=== PATIENT | female | born 1995 | race American Indian/Alaskan Native ===

== ENCOUNTER 2018-02-05 07:27 | Emergency (ER) | payer OTHER ==
[~2018-02-05] VITALS: Ht 160 cm; Wt 85.7 kg
[2018-02-05] MEDS ORDERED: XULANE PATCH1 EACH TD (07:44)
[2018-02-05 08:05] LABS: Source, Urine Voided
[2018-02-05 08:12] LABS: Blood, Urine 5+ (Neg); Glucose Qualitative, Urine Neg (Neg); Ketones, Urine Neg (Neg); Leukocyte Esterase, Urine 3+ (Neg); Nitrite, Urine Pos (Neg); Protein, Urine 3+ (Neg); Urobilinogen, Urine 1+ (Normal)
[2018-02-05 08:13] LABS: Appearance, Urine Hazy (Clear); Bilirubin, Urine 1+ (Neg); Color, Urine Yellow (P-Yellow)
[2018-02-05 08:14] LABS: Squamous Epithelial Cells Many /hpf (Few); White Blood Cells, Urine 50-100 /hpf (0-5)
[2018-02-05 08:15] LABS: Bacteria Few /hpf; Mucus Light (0-Heavy)
[2018-02-05 08:42] LABS: Source, Urine Voided
[2018-02-05 08:48] LABS: Blood, Urine 5+ (Neg); Glucose Qualitative, Urine Neg (Neg); Ketones, Urine Neg (Neg); Leukocyte Esterase, Urine 3+ (Neg); Nitrite, Urine Pos (Neg); Protein, Urine 3+ (Neg); Urobilinogen, Urine 1+ (Normal)
[2018-02-05 09:03] LABS: Appearance, Urine Hazy (Clear); Bilirubin, Urine 1+ (Neg); Color, Urine Yellow (P-Yellow)
[2018-02-05 09:18] LABS: Mucus Light (0-Heavy)
[2018-02-05 09:19] LABS: Squamous Epithelial Cells Mod /hpf (Few); White Blood Cells, Urine 50-100 /hpf (0-5)
[2018-02-05 09:20] LABS: Bacteria Mod /hpf
[2018-02-05] MEDS ORDERED: Bactrim Ds Tab1 EACH PO (09:39)
[2018-02-05] MEDS ORDERED: Zofran Odt4 MG SL (09:50)
[2018-02-05] MEDS ORDERED: Ultram50 MG PO (09:50)
== END 2018-02-05 09:57 | disposition home or self-care (01) ==
LOC: ER 07:27
PROVIDERS: Nurse Practitioner Family
DX: N39.0 Urinary tract infection, site not specified (principal); Z91.040 Latex allergy status; Z79.899 Other long term (current) drug therapy
CPT/HCPCS: 81001; 81025; 87077; 87086; 87186; 99283